=== PATIENT | male | born 1980 | race Caucasian/White ===

== ENCOUNTER 2021-10-20 21:28 | Emergency (ER) | payer OTHER, SELFPAY ==
[2021-10-20 21:41] VITALS: BP 183/107; PULSE 57; RESP 16; TEMP 36.1; O2SAT 100; BMI 26.4
--- NOTE | 2021-10-20 23:28 | PC.NURSE ---
Pt reports taking NSAIDS off and on for wrist and hand pain. Wearing brace per PCP recommendation.
--- NOTE | 2021-10-20 23:38 | ED_ITS ---
HPI - Extremity Problem General Chief complaint: Extremity Problem,Nontraumatic Stated complaint: lt wrist and hand pain, numbness Time Seen by Provider: 10/20/21 23:32 Source: patient Mode of arrival: Ambulatory Limitations: no limitations History of Present Illness HPI Narrative: 40-year-old male who is here for evaluation of left hand and wrist pain and numbness. He has had these symptoms for some time now. He has had a telemedicine visit with his primary doctor who is out of state to thinks that he potentially has carpal tunnel syndrome. He has been wearing a wrist brace. There has not been any specific trauma. He describes swelling on the little finger side of his hand but also has tingling to his ring finger and long finger and index finger. He has minimal symptoms in his left thumb. Has been on Naprosyn without improvement. The discomfort in the throbbing in the burning were getting worse so he came for evaluation. Related Data Home Medications Medication Instructions Recorded Confirmed losartan PO 09/03/20 09/03/20 Previous Rx's Medication Instructions Recorded colchicine 0.6 mg tablet 1.2 mg PO ONCE #6 tabs 08/06/20 Allergies Allergy/AdvReac Type Severity Reaction Status Date / Time No Known Drug Allergies Allergy Verified 10/20/21 21:41 Review of Systems Constitutional Constitutional: Denies fever(s) Musculoskeletal Musculoskeletal: Reports system reviewed and no additional complaints, except as documented and Reports as per HPI Integumentary/Breasts Skin/Breast: Reports system reviewed and no additional complaints, except as documented and Reports as per HPI Neurologic Neurologic: Reports system reviewed and no additional complaints, except as documented and Reports as per HPI Patient History Medical History Gout Heart palpitations Social History Smoking Status: Never smoker Smoking Status: Never smoker Substance Use Type: does not use Exam Initial Vital Signs Initial Vital Signs: Vital Signs Temperature 97 F L 10/20/21 21:41 Pulse Rate 57 L 10/20/21 21:41 Respiratory Rate 16 10/20/21 21:41 Blood Pressure 183/107 H 10/20/21 21:41 Pulse Oximetry 100 10/20/21 21:41 Oxygen Delivery Method 10/20/21 21:41 HENUT Head: normal to inspection and normocephalic Cardio Pulses: radial pulses present on the left Skin General: no rashes or lesions noted Neuro Other: He reports tingling to light touch on the radial aspect of the left ring finger and along the long finger and index finger. He has some difficulty with extending the little ring and middle finger. Extrem Other: Tinel sign negative. He does have swelling on the palmar aspect of the left hand on the ulnar aspect. Course Orders Ordered: ED Orders 10/20/21 23:38 XR hand LT min 3V Stat Discontinued Medications Hydrocodone Bitart/Acetaminophen (Hydrocodone/Acet 5/325 Prepack) 1 bottle MISC SEEINSTR ONE Stop: 10/21/21 01:13 Last Admin: 10/21/21 01:16 Dose: 1 bottle Documented By: FARHAT Vital Signs Vital signs: Vital Signs - 8 hr 10/20/21 21:41 10/21/21 01:25 Temperature 97 F L Pulse Rate 57 L 56 L Respiratory Rate 16 16 Blood Pressure 183/107 H 160/90 H Pulse Oximetry 100 100 Oxygen Delivery Method Room Air Room Air MDM - Extremity (Nontraumatic) Imaging Data Extremity x-ray #1: Radiologist's Impression: [address] [address] XRay Report Signed Patient: Nicho Marquez MR#: [id number] : 1980 Acct:[id number] Age/Sex: 40 / M Date of Service: 10/20/21 Loc: ED Accession Number: [id number] ?? Procedure: XR hand LT min 3V Ordering Provider: Jose Botello D.O. PROCEDURE:? XR HAND LT MIN 3V ? INDICATIONS:? ulnar palm pain ? TECHNIQUE:? 3 views of the hand acquired.? ? COMPARISON:? None. ? FINDINGS:? ? Bones:? No fractures or dislocations.? Carpal bones are normally aligned.? No suspicious bony lesions.? ? Soft tissues:? No suspicious soft tissue calcifications.? ? ? IMPRESSION:? ? 1. No fracture or dislocation.? ? ? Dictated by: Gerald Davila M.D. on 10/21/2021 at 1:04 ? ? Approved by: Gerald Davila M.D. on 10/21/2021 at 1:05?? MDM Narrative Medical decision making narrative: X-ray shows no signs of fracture dislocation. He does have swelling in the palmar aspect of his hand. There is no skin changes that would make me think infection. He is afebrile. He has some findings that would be consistent with carpal tunnel syndrome however his thumb and thenar aspect do not seem to be involved. Also considered ulnar nerve issues however his presenting symptoms extend outside of this specific nerve distribution. Low suspicion for compartment syndrome. No trauma. Will have the patient follow-up with orthopedic surgery for further evaluation. No indication for blood work today. No indication for advanced radiologic studies. He will continue to use the brace as needed for comfort. He is given return precautions. He expressed understanding and agreement. Discharge Plan Departure Patient Disposition: Home Clinical Impression: Hand pain, left Instructions: How To Perform RICE (Rest, Ice, Compress, Elevate) Activity Restrictions/Additional Instructions: The wrist brace can be worn for your comfort. You can continue to take anti- inflammatories such as Motrin or Naprosyn. Use the pain medication as needed. I do recommend you contact the orthopedic hand provider at the number provided below. Return to the emergency department for any new symptoms. Prescriptions: No Action colchicine 0.6 mg tablet 1.2 mg PO ONCE Qty: 6 0RF Rx Instructions: Take 1.2 mg PO x 1, then 0.6 mg PO 1 hr later; do not repeat x 3 days losartan PO Referrals: Raz Kline MD [Physician] - Woo Cr MD [Primary Care Provider] - Visit Report Forms: Patient Portal/API
--- NOTE | 2021-10-20 23:38 | DI.RAD.S_ITS ---
PROCEDURE: XR HAND LT MIN 3V INDICATIONS: ulnar palm pain TECHNIQUE: 3 views of the hand acquired. COMPARISON: None. FINDINGS: Bones: No fractures or dislocations. Carpal bones are normally aligned. No suspicious bony lesions. Soft tissues: No suspicious soft tissue calcifications. IMPRESSION: 1. No fracture or dislocation. Dictated by: Gerald Davila M.D. on 10/21/2021 at 1:04 Approved by: Gerald Davila M.D. on 10/21/2021 at 1:05
[2021-10-21] MEDS: HYDROCODONE/ACET 5/325 PREPACK 1 BOTTLE MISC (01:16)
[2021-10-21 01:25] VITALS: BP 160/90; PULSE 56; RESP 16; O2SAT 100
== END 2021-10-21 01:25 | disposition home or self-care (01) ==
PROVIDERS: Emergency Provider Emergency Medicine; PCP Family Medicine
DX: M79.642 Pain in left hand (principal)
CPT/HCPCS: 73130; 99281; 99283

== ENCOUNTER 2021-11-25 05:10 | Emergency (ER) | payer OTHER, SELFPAY ==
--- NOTE | 2021-11-25 05:15 | DI.RAD.S_ITS ---
PROCEDURE: XR CHEST 1V INDICATIONS: ELEVATED HEART RATE TECHNIQUE: One view of the chest was acquired. COMPARISON: None. FINDINGS: Surgical changes and devices: None. Lungs and pleura: Lungs are clear. No pleural effusions or pneumothorax. Mediastinum: Mediastinal contours appear normal. Heart size is normal. Bones and chest wall: No suspicious bony lesions. Overlying soft tissues appear unremarkable. IMPRESSION: No acute cardiopulmonary abnormality. Comment: Final report is concordant with preliminary interpretation by [facility] Dictated by: Melo Greene M.D. on 11/25/2021 at 7:14 Approved by: Melo Greene M.D. on 11/25/2021 at 7:14
[2021-11-25 05:16] VITALS: BP 159/117; PULSE 94; RESP 18; TEMP 36; O2SAT 99; BMI 26.4
[2021-11-25 05:22] LABS: Add Manual Diff / Slide Review NO; Basophils Absolute Auto 0 /uL (0-100); Basophils Percent Auto 0.5 % (0-2); Eosinophils Absolute Auto 100 /uL (0-450); Eosinophils Percent Auto 3.6 % (2-4); Hematocrit 43.8 % (41-53); Hemoglobin 14.9 g/dL (13.5-17.5); Lymphocytes Absolute Auto 2100 /uL (1100-4500); Lymphocytes Percent Auto 53.7 % (25-40); Mean Corpuscular HGB Conc 34.1 % (30-36); Mean Corpuscular Hemoglobin 28.3 PG (26-34); Mean Corpuscular Volume 83.2 fL (80-100); Monocytes Absolute Auto 500 /uL (0-900); Monocytes Percent Auto 12.6 % (3-14); Neutrophils Absolute Auto 1200 /uL (1500-7000); Neutrophils Percent Auto 29.6 % (50-75); Platelet Count 220 X10^3/uL (150-400); Red Blood Cell Count 5.27 X10^6/uL (4.5-5.9); Red Cell Distribution Width 14.2 % (11.6-14.8)
--- NOTE | 2021-11-25 05:26 | ED_ITS ---
HPI - Arrhythmia/Palpitations General Chief Complaint: Arrhythmia/Palpitations Stated Complaint: High heart rate, COVID + Time Seen by Provider: 11/25/21 05:15 Source: patient Mode of arrival: EMS History of Present Illness HPI narrative: 40-year-old male nonsmoker with history of hypertension and prior episodes of tachyarrhythmias presents by EMS for evaluation of a high heart rate, up into the 240s and near-syncope. On EMS arrival they found him to be diaphoretic and pale with a blood pressure in the 50s and before they could even get him on a monitor he mentioned that his symptoms were improving, his heart rate dropped down into the 90s in his blood pressure manuel back up into the 180s or so. By the time he got here he was completely asymptomatic. He denies any headache, blurred vision or trouble with speech. He has no chest pain, palpitations or shortness of breath. Denies nausea, vomiting or diarrhea. He denies any change in his medications or diet. He denies any recent travel, injury or other. He states that Sunday evening he started having nasal congestion, runny nose and sore throat with a dry and hacking cough and the following morning he tested positive for COVID. He is not taking any antivirals Related Data Home Medications Medication Instructions Recorded Confirmed losartan PO 09/03/20 09/03/20 Previous Rx's Medication Instructions Recorded colchicine 0.6 mg tablet 1.2 mg PO ONCE #6 tabs 08/06/20 Allergies Allergy/AdvReac Type Severity Reaction Status Date / Time No Known Drug Allergies Allergy Verified 10/20/21 21:41 Review of Systems Review of Systems Narrative: GENERAL: See HPI HEENT: Denies sinus pain, ear pain, sore throat, difficulty swallowing, diz ziness. RESPIRATORY: See HPI CARDIOVASCULAR: See HPI GASTROINTESTINAL: Denies nausea, vomiting, abdominal pain, diarrhea, constipation, melena. : Denies dysuria, frequency, incontinence, hematuria, urinary retention. MUSCULOSKELETAL: denies weakness, joint pain, or bony pain SKIN: Denies rash, skin lesions, or other NEUROLOGIC: Denies weakness, headache, numbness, change in speech, confusion, seizures, incoordination. PSYCHIATRIC: No concerning psychosocial issues. 12 point review of systems is negative except for those stated above Patient History Medical History Gout Heart palpitations Social History Smoking Status: Never smoker Smoking Status: Never smoker Substance Use Type: does not use Exam Narrative Exam Narrative: GENERAL: [40] year old patient appears stated age. Well-developed patient, in mild distress. HEAD: Atraumatic. Normocephalic. EYES: Pupils equal round and reactive. Extraocular motions intact. No scleral icterus. No injection or drainage. ENT: Nose without bleeding, purulent drainage. Throat without erythema, tonsillar hypertrophy or exudate. Airway patent. NECK: Trachea midline. Non tender CARDIOVASCULAR: Regular rate and rhythm without murmurs, gallops, or rubs. RESPIRATORY: Clear to auscultation. Breath sounds equal bilaterally. No wheezes, rales, or rhonchi. GASTROINTESTINAL: Abdomen soft, non-tender, nondistended. EXTREMITIES: No edema or joint tenderness. BACK: Nontender without deformity or crepitance. No flank tenderness. NEURO: AOx3. SKIN: No rash or erythema of visible areas Initial Vital Signs Initial Vital Signs: Vital Signs Temperature 96.8 F L 11/25/21 05:16 Pulse Rate 94 H 11/25/21 05:16 Respiratory Rate 18 11/25/21 05:16 Blood Pressure 159/117 H 11/25/21 05:16 Pulse Oximetry 99 11/25/21 05:16 Oxygen Delivery Method 11/25/21 05:16 Course Orders Ordered: Discontinued Medications Sodium Chloride (Normal Saline 0.9%) 1,000 mls @ 1,000 mls/hr IV BOLUS ONE Stop: 11/25/21 06:14 Last Admin: 11/25/21 06:02 Dose: Not Given Documented By: SOFIE Vital Signs Vital signs: Vital Signs - 8 hr 11/25/21 05:16 11/25/21 05:29 11/25/21 05:30 Temperature 96.8 F L Pulse Rate 94 H 97 H 91 H Respiratory Rate 18 18 17 Blood Pressure 159/117 H Pulse Oximetry 99 97 98 Oxygen Delivery Method Room Air 11/25/21 05:31 11/25/21 05:31 Temperature Pulse Rate 95 H Respiratory Rate 25 H Blood Pressure 164/101 H Pulse Oximetry 97 Oxygen Delivery Method MDM - Arrhythmia/Palpitations Lab Data Result diagrams: 11/25/21 04:55 11/25/21 04:55 Labs: Lab Results 11/25/21 11/25/21 11/25/21 Range/Units 04:55 04:55 04:55 WBC 4.0 L (4.5-11.0) X10^3/uL RBC 5.27 (4.5-5.9) X10^6/uL Hgb 14.9 (13.5-17.5) g/dL Hct 43.8 (41-53) % MCV 83.2 (80-100) fL MCH 28.3 (26-34) PG MCHC 34.1 (30-36) % RDW 14.2 (11.6-14.8) % Plt Count 220 (150-400) X10^3/uL Neut % (Auto) 29.6 L (50-75) % Lymph % (Auto) 53.7 H (25-40) % [place] % (Auto) 12.6 (3-14) % Eos % (Auto) 3.6 (2-4) % Baso % (Auto) 0.5 (0-2) % Neut # (Auto) 1200 L (0634-7158) /uL Lymph # (Auto) 2100 (0833-6489) /uL [place] # (Auto) 500 (0-900) /uL Eos # (Auto) 100 (0-450) /uL Baso # (Auto) 0 (0-100) /uL PT 11.9 (10.1-12.7) SECONDS INR 1.1 (0.9-1.3) Sodium 142 (137-145) mmol/L Potassium 4.3 (3.4-5.1) mmol/L Chloride 107 (98-107) mmol/L Carbon Dioxide 27 (22-32) mmol/L BUN 18 (9-20) mg/dL Creatinine 0.94 (0.66-1.25) mg/dL Estimated GFR > 60 (>60) mL/min BUN/Creatinine Ratio 19.1 (6-22) Glucose 122 H (70-100) mg/dL Calcium 9.0 (8.4-10.2) mg/dL Magnesium 2.3 (1.6-2.3) mg/dL Total Bilirubin 0.4 (0.2-1.3) mg/dL AST 30 (17-59) IU/L ALT 21 (<50) IU/L Alkaline Phosphatase 75 (38-126) U/L Total Creatine Kinase 62 (55-170) U/L CK-MB (CK-2) TNP CK-MB (CK-2) Rel Index TNP Troponin I < 0.012 (0.01-0.034) ng/mL C-Reactive Protein 1.9 H (<1.0) mg/dL NT-Pro-B Natriuret Pep 88 (<125) pg/mL Total Protein 8.2 (6.3-8.2) g/dL Albumin 4.7 (3.5-5.0) g/dL Globulin 3.5 (1.7-4.1) g/dL Albumin/Globulin Ratio 1.3 (1.0-2.8) ECG Data Interpretation: [0519] EKG is normal sinus rhythm rate [90 ] and free of any signs of ischemia or ectopy. No ST segmental elevation or depression. No T wave inversions MDM Narrative Medical decision making narrative: Patient had a relatively brief episode of a tachyarrhythmia resulting in near syncope. This had resolved without any specific intervention. His history and physical are very reassuring, EKGs normalized vitals have normalized, there are no abnormal lab findings. Presumably this is a consequence of COVID as he d enies any change in behavior, diet, medications or other substances. Extensive return precautions discussed and questions answered to his apparent satisfaction Discharge Plan Departure Patient Disposition: Home Clinical Impression: Supraventricular tachycardia, Near syncope Instructions: DI for Arrhythmias Activity Restrictions/Additional Instructions: *You have been diagnosed with [tachy arrhythmia and near-syncope, possibly a consequence of COVID. As we discussed your history and physical exam as well as labs and EKG are otherwise very reassuring and there is no evidence of any significant abnormality such as heart attack, electrolyte abnormality or other] *What to do: *Please continue to take your regular medications as directed. [ ] New medication prescriptions sent to your pharmacy: [ ] [ ] New medication written as a paper prescription [x ] No new medications given *Please follow up with your primary care provider in 2-3 days, call for an appointment. Let them know you were seen in the Emergency Department and that we ask that you be seen in follow up. We will electronically transmit a record of today's note if your PCP is in our system *If you do not have a primary care provider please contact the [facility] Resource line at [phone]. They will ask some questions about your medical history and help get you set up with a doctor in the community. *Return to Emergency Department if you should have any new, worsening or concerning symptoms, such as [fever greater than 101 F, shaking chills, worsening pain, persistent vomiting or other bothersome symptoms] Prescriptions: No Action colchicine 0.6 mg tablet 1.2 mg PO ONCE Qty: 6 0RF Rx Instructions: Take 1.2 mg PO x 1, then 0.6 mg PO 1 hr later; do not repeat x 3 days losartan PO Referrals: Woo Cr MD [Primary Care Provider] - Visit Report Forms: Patient Portal/API
[2021-11-25 05:29] VITALS: PULSE 97; RESP 18; O2SAT 97
[2021-11-25 05:30] VITALS: PULSE 91; RESP 17; O2SAT 98
[2021-11-25 05:30] LABS: INR 1.1 (0.9-1.3); Prothrombin Time 11.9 SECONDS (10.1-12.7)
[2021-11-25 05:31] VITALS: BP 164/101; PULSE 95; RESP 25; O2SAT 97
[2021-11-25 05:37] LABS: Alanine Aminotransferase 21 IU/L (<50); Albumin 4.7 g/dL (3.5-5.0); Albumin Globulin Ratio 1.3 (1.0-2.8); Alkaline Phosphatase 75 U/L (38-126); Aspartate Aminotransferase 30 IU/L (17-59); BUN Creatinine Ratio 19.1 (6-22); Bilirubin Total 0.4 mg/dL (0.2-1.3); Blood Urea Nitrogen 18 mg/dL (9-20); C-Reactive Protein Quant 1.9 mg/dL (<1.0); Carbon Dioxide 27 mmol/L (22-32); Chloride 107 mmol/L (98-107); Creatine Kinase 62 U/L (55-170); Estimated Glomerular Filt Rate > 60 mL/min (>60); Globulin 3.5 g/dL (1.7-4.1); Glucose 122 mg/dL (70-100); HEMOLYSIS 45 (0-50); Magnesium 2.3 mg/dL (1.6-2.3); Potassium 4.3 mmol/L (3.4-5.1); Sodium 142 mmol/L (137-145); Total Protein 8.2 g/dL (6.3-8.2)
[2021-11-25 05:46] LABS: NT-proBNP (BNP-Adult 18+) 88 pg/mL (<125); Troponin I < 0.012 ng/mL (0.01-0.034)
== END 2021-11-25 06:03 | disposition home or self-care (01) ==
LOC: ED 06:09
PROVIDERS: Emergency Provider Emergency Medicine; PCP Family Medicine
DX: I47.1 Supraventricular tachycardia (principal); R55 Syncope and collapse; U07.1 COVID-19
CPT/HCPCS: 36415; 71045; 80053; 82550; 83735; 83880; 84484; 85025; 85610; 86140; 93005; 93010; 99283; 99284

== ENCOUNTER 2022-10-29 22:36 | Emergency (ER) | payer OTHER, SELFPAY ==
[2022-10-29 22:40] VITALS: BP 185/128; PULSE 97; RESP 19; TEMP 36.6; O2SAT 98; BMI 27.7
--- NOTE | 2022-10-29 22:52 | DI.RAD.S_ITS ---
PROCEDURE: XR CHEST 1V INDICATIONS: chest pain TECHNIQUE: One view of the chest was acquired. COMPARISON: [facility], CR, XR CHEST 1V, 11/25/2021, 5:23. FINDINGS: Surgical changes and devices: None. Lungs and pleura: Lungs are clear. No pleural effusions or pneumothorax. Mediastinum: Mediastinal contours appear normal. Heart size is normal. Bones and chest wall: No suspicious bony lesions. Overlying soft tissues appear unremarkable. IMPRESSION: No acute pulmonary process. Dictated by: Lindsay Anderson M.D. on 10/29/2022 at 23:12 Approved by: Lindsay Anderson M.D. on 10/29/2022 at 23:12
[2022-10-29] MEDS: ASPIRIN 81 MG CHEW TAB 324 MG PO (23:01)
[2022-10-29 23:05] LABS: Prothrombin Time 11.7 SECONDS (10.1-12.7)
[2022-10-29 23:07] LABS: PTT Partial Thromboplastin Tim 31 SECONDS (26-36)
[2022-10-29 23:09] LABS: Alanine Aminotransferase 37 IU/L (<50); Albumin 4.8 g/dL (3.5-5.0); Albumin Globulin Ratio 1.3 (1.0-2.8); Alkaline Phosphatase 85 U/L (38-126); Aspartate Aminotransferase 31 IU/L (17-59); BUN Creatinine Ratio 15.1 (6-22); Bilirubin Total 0.5 mg/dL (0.2-1.3); Blood Urea Nitrogen 13 mg/dL (9-20); Calcium 9.2 mg/dL (8.4-10.2); Carbon Dioxide 29 mmol/L (22-32); Chloride 102 mmol/L (98-107); Creatine Kinase 96 U/L (55-170); Estimated Glomerular Filt Rate > 60 mL/min (>60); Globulin 3.7 g/dL (1.7-4.1); Glucose 131 mg/dL (70-100); HEMOLYSIS < 15 (0-50); Lipase 172 U/L (23-300); Potassium 3.9 mmol/L (3.4-5.1); Sodium 139 mmol/L (137-145); Total Protein 8.5 g/dL (6.3-8.2)
[2022-10-29 23:16] LABS: Add Manual Diff / Slide Review NO; Basophils Absolute Auto 100 /uL (0-100); Basophils Percent Auto 0.8 % (0-2); Eosinophils Absolute Auto 200 /uL (0-450); Eosinophils Percent Auto 3.1 % (2-4); Hematocrit 46.1 % (41-53); Hemoglobin 15.8 g/dL (13.5-17.5); Lymphocytes Absolute Auto 3000 /uL (1100-4500); Lymphocytes Percent Auto 38.8 % (25-40); Mean Corpuscular HGB Conc 34.2 % (30-36); Mean Corpuscular Hemoglobin 28.8 PG (26-34); Mean Corpuscular Volume 84.2 fL (80-100); Monocytes Absolute Auto 500 /uL (0-900); Monocytes Percent Auto 6.7 % (3-14); Neutrophils Absolute Auto 3900 /uL (1500-7000); Neutrophils Percent Auto 50.6 % (50-75); Platelet Count 287 X10^3/uL (150-400); Red Blood Cell Count 5.48 X10^6/uL (4.5-5.9); Red Cell Distribution Width 14.4 % (11.6-14.8); White Blood Cell Count 7.7 X10^3/uL (4.5-11.0)
[2022-10-29 23:21] LABS: Troponin I < 0.012 ng/mL (0.01-0.034)
[2022-10-30 00:10] VITALS: BP 166/120; PULSE 82; RESP 19; O2SAT 98
[2022-10-30 00:24] VITALS: BP 156/106; PULSE 80; RESP 18; O2SAT 96
--- NOTE | 2022-10-30 00:49 | ED_ITS ---
HPI - Arrhythmia/Palpitations General Chief Complaint: Arrhythmia/Palpitations Stated Complaint: Rapid Heart Rate 250BPM Time Seen by Provider: 10/30/22 00:49 Source: patient Mode of arrival: Ambulatory History of Present Illness HPI narrative: Patient is a 41-year-old male history of SVT presenting today with an episode of SVT. He had an ablation in 2021 he is since had 4 episodes of SVT. He is currently taking metoprolol. He reports that this episode lasted the longest any of them have ever lasted. He tried Valsalva and other vagal maneuvers at home none of them worked. However in the triage room it work. He reports his heart rate was 182-50 he is now in a normal sinus tachycardia. He denies any fever chills nausea vomiting or any other symptoms Related Data Home Medications Medication Instructions Recorded Confirmed losartan PO 09/03/20 09/03/20 Previous Rx's Medication Instructions Recorded colchicine 0.6 mg tablet 1.2 mg PO ONCE #6 tabs 08/06/20 Allergies Allergy/AdvReac Type Severity Reaction Status Date / Time No Known Drug Allergies Allergy Verified 10/20/21 21:41 Review of Systems Review of Systems ROS Unobtainable: All systems reviewed & are unremarkable except as noted in HPI and below Patient History Medical History Gout Heart palpitations Social History Smoking Status: Never smoker Smoking Status: Never smoker Substance Use Type: does not use Exam Initial Vital Signs Initial Vital Signs: Vital Signs Temperature 97.8 F 10/29/22 22:40 Pulse Rate 97 H 10/29/22 22:40 Respiratory Rate 19 10/29/22 22:40 Blood Pressure 185/128 H 10/29/22 22:40 Pulse Oximetry 98 10/29/22 22:40 Oxygen Delivery Method Room Air 10/29/22 22:40 GENERAL: Alert pleasant well-appearing 41-year-old male and in no acute distress. HEENT: Head atraumatic,EOMI, pupils reactive, face symmetric, moist mucous membranes CARDIOVASCULAR: Regular rate and rhythm without murmurs, rubs or gallops. RESPIRATORY: Breath sounds equal bilaterally, no wheezes rales or rhonchi. ABDOMEN: Soft, nontender. Normoactive bowel sounds all 4 quadrants. No guarding or rebound. EXTREMITIES: Normal range of motion, no clubbing or edema. Neurovascularly intact NEUROLOGICAL: Alert and oriented x4. SKIN: Warm, dry, no laceration, no petechiae, no rashes or lesions. Course Orders Ordered: ED Orders 10/29/22 22:48 Complete Blood Count AUTO DIFF Stat Comprehensive Metabolic Panel Stat Lipase Stat Magnesium Stat PTT Partial Thromboplastin Ramone Stat Prothrombin Time INR Stat Troponin & CK Cardiac Panel Stat 10/29/22 22:52 XR chest 1V Stat EKG-12 Lead Stat Discontinued Medications Aspirin (Aspirin 81 Mg Chew Tab) 324 mg PO NOW ONE Stop: 10/29/22 22:53 Last Admin: 10/29/22 23:01 Dose: 324 mg Documented By: ZACK Vital Signs Vital signs: Vital Signs - 8 hr 10/29/22 22:40 10/30/22 00:10 10/30/22 00:24 Temperature 97.8 F Pulse Rate 97 H 82 80 Respiratory Rate 19 19 18 Blood Pressure 185/128 H 166/120 H 156/106 H Pulse Oximetry 98 98 96 Oxygen Delivery Method Room Air Room Air Room Air MDM - Arrhythmia/Palpitations Lab Data 10/29/22 22:48 10/29/22 22:48 Labs: Lab Results 10/29/22 10/29/22 10/29/22 Range/Units 22:48 22:48 22:48 WBC 7.7 (4.5-11.0) X10^3/uL RBC 5.48 (4.5-5.9) X10^6/uL Hgb 15.8 (13.5-17.5) g/dL Hct 46.1 (41-53) % MCV 84.2 (80-100) fL MCH 28.8 (26-34) PG MCHC 34.2 (30-36) % RDW 14.4 (11.6-14.8) % Plt Count 287 (150-400) X10^3/uL Neut % (Auto) 50.6 (50-75) % Lymph % (Auto) 38.8 (25-40) % [place] % (Auto) 6.7 (3-14) % Eos % (Auto) 3.1 (2-4) % Baso % (Auto) 0.8 (0-2) % Neut # (Auto) 3900 (5573-5589) /uL Lymph # (Auto) 3000 (9452-9553) /uL [place] # (Auto) 500 (0-900) /uL Eos # (Auto) 200 (0-450) /uL Baso # (Auto) 100 (0-100) /uL PT 11.7 (10.1-12.7) SECONDS INR 1.0 (0.9-1.3) APTT 31 (26-36) SECONDS Sodium 139 (137-145) mmol/L Potassium 3.9 (3.4-5.1) mmol/L Chloride 102 (98-107) mmol/L Carbon Dioxide 29 (22-32) mmol/L BUN 13 (9-20) mg/dL Creatinine 0.86 (0.66-1.25) mg/dL Estimated GFR > 60 (>60) mL/min BUN/Creatinine Ratio 15.1 (6-22) Glucose 131 H (70-100) mg/dL Calcium 9.2 (8.4-10.2) mg/dL Magnesium 2.0 (1.6-2.3) mg/dL Total Bilirubin 0.5 (0.2-1.3) mg/dL AST 31 (17-59) IU/L ALT 37 (<50) IU/L Alkaline Phosphatase 85 (38-126) U/L Total Creatine Kinase 96 (55-170) U/L CK-MB (CK-2) TNP CK-MB (CK-2) Rel Index TNP Troponin I < 0.012 (0.01-0.034) ng/mL Total Protein 8.5 H (6.3-8.2) g/dL Albumin 4.8 (3.5-5.0) g/dL Globulin 3.7 (1.7-4.1) g/dL Albumin/Globulin Ratio 1.3 (1.0-2.8) Lipase 172 (23-300) U/L Imaging Data Chest x-ray: Radiologist's Impresson: PROCEDURE:? XR CHEST 1V ? INDICATIONS:? chest pain ? TECHNIQUE:? One view of the chest was acquired.? ? COMPARISON:? [facility], CR, XR CHEST 1V, 11/25/2021, 5:23. ? FINDINGS:? ? Surgical changes and devices:? None.? ? Lungs and pleura:? Lungs are clear.? No pleural effusions or pneumothorax.? ? Mediastinum:? Mediastinal contours appear normal.? Heart size is normal.? ? Bones and chest wall:? No suspicious bony lesions.? Overlying soft tissues appear unremarkable.? ? IMPRESSION:? No acute pulmonary process. ? ? Dictated by: Lindsay Anderson M.D. on 10/29/2022 at 23:12 ? ? Approved by: Lindsay Anderson M.D. on 10/29/2022 at 23:12 ? ECG Data Interpretation: Sinus rhythm rate 97 ME interval 140 QRS [address] changes or T-wave inversions MDM Narrative Medical decision making narrative: Patient is 41-year-old male history of SVT presenting with an episode of SVT that has since resolved. Blood work is overall reassuring without any sort of clinical significant abnormalities. Chest x-ray is also negative. Patient reports that he is an appointment with his surface water technician on November 09 because he has had episodes of SVT since the ablation. At this time no changes to his medication however encourage him to call tomorrow for advice. Discharge Plan Departure Patient Disposition: Home Clinical Impression: Supraventricular tachycardia Instructions: DI for Paroxysmal Supraventricular Tachycardia Activity Restrictions/Additional Instructions: *You have been diagnosed with SVT *What to do: At this time please continue to monitor. Please discuss with your surface water technician her metoprolol medication may need to be adjusted. *Continue to take medications as directed *Follow up with your primary care provider in 2-3 days or call [phone] Follow-up with your surface water technician November 09 as scheduled *Return to ER if you should have increasing palpitations chest pain or shortness of [or] any new, worsening or concerning symptoms Prescriptions: No Action colchicine 0.6 mg tablet 1.2 mg PO ONCE Qty: 6 0RF Rx Instructions: Take 1.2 mg PO x 1, then 0.6 mg PO 1 hr later; do not repeat x 3 days losartan PO Referrals: Mehran Montanez MD [Physician] - Woo Cr MD [Primary Care Provider] - Stand Alone Forms: Patient Portal/API
== END 2022-10-30 01:10 | disposition home or self-care (01) ==
PROVIDERS: Emergency Provider Emergency Medicine; PCP Family Medicine
DX: I47.1 Supraventricular tachycardia (principal); R07.9 Chest pain, unspecified
CPT/HCPCS: 36415; 71045; 80053; 82550; 82553; 83690; 83735; 84484; 85025; 85610; 85730; 93005; 93010; 99284

== ENCOUNTER 2022-12-04 02:30 | Emergency (ER) | payer OTHER, SELFPAY ==
[2022-12-04] VITALS (19 sets, daily range): BP systolic 135–185; BP diastolic 82–111; PULSE 70–238; RESP 13–22; TEMP 35.8–36.6; O2SAT 95–100; BMI 24.3
[2022-12-04] MEDS: ADENOSINE 6 MG/2 ML VIAL IV (02:48)
--- NOTE | 2022-12-04 02:51 | DI.RAD.S_ITS ---
PROCEDURE: XR CHEST 1V INDICATIONS: Arrhythmia TECHNIQUE: One view of the chest was acquired. COMPARISON: [facility], CR, XR CHEST 1V, 10/29/2022, 22:48. FINDINGS: Surgical changes and devices: None. Lungs and pleura: Lungs are clear. No pleural effusions or pneumothorax. Mediastinum: Mediastinal contours appear normal. Heart size is normal. Bones and chest wall: No suspicious bony lesions. Overlying soft tissues appear unremarkable. IMPRESSION: No evidence acute pulmonary process. Comment: Final report is concordant with preliminary interpretation provided by [facility]. Dictated by: Castro Groves M.D. on 12/04/2022 at 8:20 Approved by: Castro Groves M.D. on 12/04/2022 at 8:20
--- NOTE | 2022-12-04 02:53 | ED.ARRPALP ---
HPI - Arrhythmia/Palpitations General Chief Complaint: Arrhythmia/Palpitations Stated Complaint: palpatations Time Seen by Provider: 12/04/22 02:51 Source: patient, RN notes reviewed and old records reviewed Mode of arrival: Ambulatory Limitations: no limitations History of Present Illness HPI narrative: This is a 41-year-old male with history of SVT who is had a prior ablation on metoprolol daily. Patient states he had an episode starting this morning at about 208. He states he has issues frequently he can typically resolve his episodes with Valsalva were vagal maneuvers but has been unsuccessful this morning. He denies any syncope or lightheadedness. He does feel sweaty. He can feel it is very fast. He feels a little tightness in his chest. He denies pain. Denies shortness of breath. No nausea no vomiting. No swelling of his extremities. No other GI or urinary symptoms. Patient states no major surgeries besides his ablation. He states he is scheduled for another ablation his 1st 1 was unsuccessful. He follows with a Dr. Crespo for Cardiology out of [place]. Denies any drug allergies. No tobacco, alcohol or illicit. He states he has never received adenosine. He states he is always cardioverted even with his ER visits but for he is received any medications. Patient states he did take an extra dose of metoprolol prior to coming in to see if this would improve his rate. He states he was recommended do this by his supervisor [employer]. Related Data Home Medications Medication Instructions Recorded Confirmed losartan PO 09/03/20 09/03/20 Previous Rx's Medication Instructions Recorded colchicine 0.6 mg tablet 1.2 mg PO ONCE #6 tabs 08/06/20 Allergies Allergy/AdvReac Type Severity Reaction Status Date / Time No Known Drug Allergies Allergy Verified 10/20/21 21:41 Review of Systems Review of Systems ROS Unobtainable: All systems reviewed & are unremarkable except as noted in HPI and below Patient History Medical History Gout Heart palpitations Social History Smoking Status: Never smoker Smoking Status: Never smoker Substance Use Type: does not use Exam Narrative Exam Narrative: GENERAL: Alert and oriented x three, male in mild distress. HEENT: Head normocephalic, atraumatic, EOMI, pupils reactive, face symmetric, moist mucous membranes NECK: Supple, full range of motion CARDIOVASCULAR: Tachycardic and Regular rate and rhythm without murmurs, rubs or gallops. No JVD. No swelling bilateral lower extremities. Cap refill less than 2 seconds in all 4 extremities. RESPIRATORY: Breath sounds equal bilaterally, no wheezes rales or rhonchi. No tachypnea or accessory muscle use. ABDOMEN: Soft, nontender. Normoactive bowel sounds all 4 quadrants. No guarding or rebound, rigidity, no mass : No CVA tenderness EXTREMITIES: Normal range of motion, no clubbing or edema. Neurovascularly intact NEUROLOGICAL: Cranial nerves II through XII grossly intact. Moving all extremities SKIN: Warm, dry, no petechiae, no rashes or lesions. Initial Vital Signs Initial Vital Signs: Vital Signs Temperature 97.8 F 12/04/22 02:40 Pulse Rate 238 H 12/04/22 02:40 Respiratory Rate 20 12/04/22 02:40 Blood Pressure 157/110 H 12/04/22 02:40 Pulse Oximetry 98 12/04/22 02:40 Oxygen Delivery Method Room Air 12/04/22 02:40 Procedures Cardioversion Consent Signed: No Indication: Verbal consent patient received adenosine for SVT. Stability: Stable Number of attempts (shocks): 0 Additional Comments: Patient received adenosine 6 mg, slowed 209 bmp range but then returned back to 240 received additional dose of 12 mg adenosine patient performed vagal maneuvers with both and rate slowed to the 90 range appears to be in sinus rhythm on EKG Course Orders Ordered: ED Orders 12/04/22 EKG-12 Lead Routine 12/04/22 02:47 Complete Blood Count AUTO DIFF Stat Comprehensive Metabolic Panel Stat Lipase Stat NT-proBNP (BNP-Adult 18+) Stat PTT Partial Thromboplastin Ramone Stat Prothrombin Time INR Stat Troponin & CK Cardiac Panel Stat 12/04/22 02:51 XR chest 1V Stat EKG-12 Lead Stat Discontinued Medications Adenosine (Adenosine 6 Mg/2 Ml Vial) 6 mg IV NOW ONE Stop: 12/04/22 03:18 Last Admin: 12/04/22 02:48 Dose: 6 mg Documented By: SB Adenosine (Adenosine 6 Mg/2 Ml Vial) 12 mg IV NOW ONE Stop: 12/04/22 03:18 Last Admin: 12/04/22 02:57 Dose: 12 mg Documented By: ZACK Sodium Chloride (Normal Saline 0.9%) 1,000 mls @ 1,000 mls/hr IV BOLUS ONE Stop: 12/04/22 03:50 Last Infusion: 12/04/22 04:25 Dose: 0 mls/hr Documented By: Admin: 12/04/22 03:06 Dose: 1,000 mls/hr Documented By: ZACK Vital Signs Vital signs: Vital Signs - 8 hr 12/04/22 02:40 12/04/22 02:50 12/04/22 02:50 Temperature 97.8 F 96.4 F L Pulse Rate 238 H 224 H 181 H Respiratory Rate 20 Blood Pressure 157/110 H 135/86 Pulse Oximetry 98 99 100 Oxygen Delivery Method Room Air Room Air 12/04/22 02:53 12/04/22 02:53 12/04/22 02:55 Temperature Pulse Rate 232 H 231 H Respiratory Rate 16 Blood Pressure 135/86 Pulse Oximetry 98 98 Oxygen Delivery Method 12/04/22 02:58 12/04/22 02:59 12/04/22 02:59 Temperature Pulse Rate 86 Respiratory Rate 14 Blood Pressure 185/111 H 170/108 H Pulse Oximetry 99 Oxygen Delivery Method 12/04/22 03:00 12/04/22 03:00 12/04/22 03:05 Temperature Pulse Rate 84 75 Respiratory Rate 20 19 Blood Pressure 157/110 H Pulse Oximetry 99 96 Oxygen Delivery Method 12/04/22 03:10 12/04/22 03:21 12/04/22 03:22 Temperature Pulse Rate 74 84 Respiratory Rate 13 22 Blood Pressure 179/105 H Pulse Oximetry 98 98 Oxygen Delivery Method 12/04/22 03:22 12/04/22 03:24 12/04/22 03:24 Temperature Pulse Rate 72 73 Respiratory Rate 16 22 Blood Pressure 171/93 H Pulse Oximetry 99 98 Oxygen Delivery Method 12/04/22 03:25 12/04/22 03:30 12/04/22 03:30 Temperature Pulse Rate 75 74 Respiratory Rate 18 13 Blood Pressure 161/82 H Pulse Oximetry 98 96 Oxygen Delivery Method 12/04/22 03:35 12/04/22 03:40 12/04/22 03:45 Temperature Pulse Rate 74 76 73 Respiratory Rate 18 16 15 Blood Pressure Pulse Oximetry 96 96 95 Oxygen Delivery Method 12/04/22 03:46 12/04/22 03:46 12/04/22 03:50 Temperature Pulse Rate 70 73 Respiratory Rate 17 17 Blood Pressure 155/98 H Pulse Oximetry 95 95 Oxygen Delivery Method Room Air MDM - Arrhythmia/Palpitations Lab Data 12/04/22 02:47 12/04/22 02:47 Labs: Lab Results 12/04/22 12/04/22 12/04/22 Range/Units 02:47 02:47 02:47 WBC 8.8 (4.5-11.0) X10^3/uL RBC 5.44 (4.5-5.9) X10^6/uL Hgb 15.9 (13.5-17.5) g/dL Hct 45.6 (41-53) % MCV 83.8 (80-100) fL MCH 29.2 (26-34) PG MCHC 34.9 (30-36) % RDW 13.5 (11.6-14.8) % Plt Count 260 (150-400) X10^3/uL Neut % (Auto) 49.1 L (50-75) % Lymph % (Auto) 38.2 (25-40) % [place] % (Auto) 6.9 (3-14) % Eos % (Auto) 3.6 (2-4) % Baso % (Auto) 2.2 H (0-2) % Neut # (Auto) 4300 (1660-5558) /uL Lymph # (Auto) 3400 (1846-2795) /uL [place] # (Auto) 600 (0-900) /uL Eos # (Auto) 300 (0-450) /uL Baso # (Auto) 200 H (0-100) /uL PT 11.7 (10.1-12.7) SECONDS INR 1.0 (0.9-1.3) APTT 32 (26-36) SECONDS Sodium 142 (137-145) mmol/L Potassium 3.8 (3.4-5.1) mmol/L Chloride 104 (98-107) mmol/L Carbon Dioxide 29 (22-32) mmol/L BUN 17 (9-20) mg/dL Creatinine 0.97 (0.66-1.25) mg/dL Estimated GFR > 60 (>60) mL/min BUN/Creatinine Ratio 17.5 (6-22) Glucose 147 H (70-100) mg/dL Calcium 9.4 (8.4-10.2) mg/dL Total Bilirubin 0.5 (0.2-1.3) mg/dL AST 25 (17-59) IU/L ALT 27 (<50) IU/L Alkaline Phosphatase 87 (38-126) U/L Total Creatine Kinase 66 (55-170) U/L Troponin I < 0.012 (0.01-0.034) ng/mL NT-Pro-B Natriuret Pep (<125) pg/mL Total Protein 8.4 H (6.3-8.2) g/dL Albumin 4.8 (3.5-5.0) g/dL Globulin 3.6 (1.7-4.1) g/dL Albumin/Globulin Ratio 1.3 (1.0-2.8) Lipase 156 (23-300) U/L 12/04/22 Range/Units 02:47 WBC (4.5-11.0) X10^3/uL RBC (4.5-5.9) X10^6/uL Hgb (13.5-17.5) g/dL Hct (41-53) % MCV (80-100) fL MCH (26-34) PG MCHC (30-36) % RDW (11.6-14.8) % Plt Count (150-400) X10^3/uL Neut % (Auto) (50-75) % Lymph % (Auto) (25-40) % [place] % (Auto) (3-14) % Eos % (Auto) (2-4) % Baso % (Auto) (0-2) % Neut # (Auto) (1309-4489) /uL Lymph # (Auto) (2046-7504) /uL [place] # (Auto) (0-900) /uL Eos # (Auto) (0-450) /uL Baso # (Auto) (0-100) /uL PT (10.1-12.7) SECONDS INR (0.9-1.3) APTT (26-36) SECONDS Sodium (137-145) mmol/L Potassium (3.4-5.1) mmol/L Chloride (98-107) mmol/L Carbon Dioxide (22-32) mmol/L BUN (9-20) mg/dL Creatinine (0.66-1.25) mg/dL Estimated GFR (>60) mL/min BUN/Creatinine Ratio (6-22) Glucose (70-100) mg/dL Calcium (8.4-10.2) mg/dL Total Bilirubin (0.2-1.3) mg/dL AST (17-59) IU/L ALT (<50) IU/L Alkaline Phosphatase (38-126) U/L Total Creatine Kinase (55-170) U/L Troponin I (0.01-0.034) ng/mL NT-Pro-B Natriuret Pep 108 (<125) pg/mL Total Protein (6.3-8.2) g/dL Albumin (3.5-5.0) g/dL Globulin (1.7-4.1) g/dL Albumin/Globulin Ratio (1.0-2.8) Lipase (23-300) U/L Imaging Data Chest x-ray: My Impression: nap. ECG Data Attestation: I personally reviewed and interpreted this ECG as follows: Prior ECG tracings: available for review Interpretation: Tachycardia with a rate of 23 QRS is 176 QTC 347. Appears to be SVT patient does have depression in 1 2 and aVL as well as lateral leads V4 through V6. Possible elevation in V1/AVR. Repeat EKG shows sinus rhythm rate of 90 6p are 156 QRS of 92 and QTC of 396. No acute ST elevation depression appears present still little bit in wanted to not so much in AVF, also appears to be slightly present in V3 through V6 but less so. Patient does have prior from 10/29/2022 lateral leads V4 through V6 appear similar. MDM Narrative Medical decision making narrative: This is a 41-year-old male with known history of SVT with prior ablation which has not been successful. Patient is on metoprolol daily he developed an episode today, states he can usually resolve it with vagal maneuvers but was unsuccessful. Upon arrival had heart rate to 40s, patient attempted vagal maneuvers without success, had adenosine 6 mg which slowed him briefly and then received 12 mg and cardioverted/low to sinus rhythm at about 80-90 beats per minute. Patient's labs do not show any major abnormalities or electrolyte abnormalities. Chest x-ray shows no acute change. Patient feels much improved and has not had any additional episodes of tachycardia. Has cardiology in place for follow-up and is scheduled for repeat ablation in February. He is already taken an extra dose this morning his metoprolol. Discussed with patient to talk with his supervisor [employer] about possibly increasing his dose he is unsure of the amount he states he takes it once daily and will call this morning to discuss. His heart rate and blood pressure sinus rhythm appear that he could tolerate an increase in his medication and this was expressed to the patient. Patient is felt appropriate and safe for discharge. Patient feels comfortable with this plan. Return precautions discussed. Critical Care Time Critical Care Time Attestation: The high probability of a clinically significant, sudden or life threatening deterioration of the [cardiac] system(s) required my full and direct attention, intervention and personal management. The aggregate critical care time was [] minutes. 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 Call today to set up follow up. 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 Please return if you have recurrent episodes of tachycardia, chest pain, shortness of breath, lightheadedness or passing out, new swelling in her extremities, splinting or other new or concerning changes. Prescriptions: No Action colchicine 0.6 mg tablet 1.2 mg PO ONCE Qty: 6 0RF Rx Instructions: Take 1.2 mg PO x 1, then 0.6 mg PO 1 hr later; do not repeat x 3 days losartan PO Referrals: Woo Cr MD [Primary Care Provider] - Stand Alone Forms: Patient Portal/API
[2022-12-04] MEDS: ADENOSINE 6 MG/2 ML VIAL 12 MG IV (02:57)
[2022-12-04 03:02] LABS: Prothrombin Time 11.7 SECONDS (10.1-12.7)
[2022-12-04 03:05] LABS: PTT Partial Thromboplastin Tim 32 SECONDS (26-36)
[2022-12-04] MEDS: SODIUM CHLORIDE 0.9% 1,000 ML 1000 ML IV (03:06)
[2022-12-04 03:07] LABS: Alanine Aminotransferase 27 IU/L (<50); Albumin 4.8 g/dL (3.5-5.0); Albumin Globulin Ratio 1.3 (1.0-2.8); Alkaline Phosphatase 87 U/L (38-126); Aspartate Aminotransferase 25 IU/L (17-59); BUN Creatinine Ratio 17.5 (6-22); Bilirubin Total 0.5 mg/dL (0.2-1.3); Blood Urea Nitrogen 17 mg/dL (9-20); Calcium 9.4 mg/dL (8.4-10.2); Carbon Dioxide 29 mmol/L (22-32); Chloride 104 mmol/L (98-107); Creatine Kinase 66 U/L (55-170); Estimated Glomerular Filt Rate > 60 mL/min (>60); Globulin 3.6 g/dL (1.7-4.1); Glucose 147 mg/dL (70-100); HEMOLYSIS 16 (0-50); Lipase 156 U/L (23-300); Potassium 3.8 mmol/L (3.4-5.1); Sodium 142 mmol/L (137-145); Total Protein 8.4 g/dL (6.3-8.2)
[2022-12-04 03:08] LABS: Add Manual Diff / Slide Review NO; Basophils Absolute Auto 200 /uL (0-100); Basophils Percent Auto 2.2 % (0-2); Eosinophils Absolute Auto 300 /uL (0-450); Eosinophils Percent Auto 3.6 % (2-4); Hematocrit 45.6 % (41-53); Hemoglobin 15.9 g/dL (13.5-17.5); Lymphocytes Absolute Auto 3400 /uL (1100-4500); Lymphocytes Percent Auto 38.2 % (25-40); Mean Corpuscular HGB Conc 34.9 % (30-36); Mean Corpuscular Hemoglobin 29.2 PG (26-34); Mean Corpuscular Volume 83.8 fL (80-100); Monocytes Absolute Auto 600 /uL (0-900); Monocytes Percent Auto 6.9 % (3-14); Neutrophils Absolute Auto 4300 /uL (1500-7000); Neutrophils Percent Auto 49.1 % (50-75); Platelet Count 260 X10^3/uL (150-400); Red Blood Cell Count 5.44 X10^6/uL (4.5-5.9); Red Cell Distribution Width 13.5 % (11.6-14.8); White Blood Cell Count 8.8 X10^3/uL (4.5-11.0)
[2022-12-04 03:16] LABS: NT-proBNP (BNP-Adult 18+) 108 pg/mL (<125)
[2022-12-04 03:19] LABS: Troponin I < 0.012 ng/mL (0.01-0.034)
== END 2022-12-04 03:59 | disposition home or self-care (01) ==
PROVIDERS: Emergency Provider Emergency Medicine; PCP Family Medicine
DX: I47.1 Supraventricular tachycardia (principal)
CPT/HCPCS: 36415; 71045; 80053; 82550; 83690; 83880; 84484; 85025; 85610; 85730; 93005; 93010; 99284; 99285; J0153